=== PATIENT | female | born 1995 | race Caucasian/White ===

== ENCOUNTER 2016-08-23 14:58 | Emergency (ER) | payer OTHER ==
[2016-08-23 16:16] LABS: HEMOGLOBIN 12.6 gm/dl (12.3-15.3); RED BLOOD COUNT 4.26 M/UL (4.00-5.10)
[2016-08-23 16:30] LABS: BUN/CREATININE RATIO 10 (0-10)
== END 2016-08-23 18:30 | disposition home or self-care (01) ==
LOC: ER1 14:58
PROVIDERS: Emergency Medicine
DX: O99.512 Diseases of the respiratory system complicating pregnancy, second trimester (principal); J11.1 Influenza due to unidentified influenza virus with other respiratory manifestations; Z3A.21 21 weeks gestation of pregnancy
CPT/HCPCS: 36415; 80048; 81001; 83518; 85025; 87081; 87086; 87880; 96360; 99283; J7030

== ENCOUNTER → 2016-10-09 | Outpatient (CLI) | payer OTHER | LOC: GENOP 21:37 | DX: O26.892 Other specified pregnancy related conditions, second trimester (principal); R10.9 Unspecified abdominal pain; Z3A.27 27 weeks gestation of pregnancy | CPT/HCPCS: 81001; 82731; G0463 ==